=== PATIENT | male | born 1950 | race Caucasian/White ===

== ENCOUNTER 2023-02-14 08:35 | Outpatient (CLI) | payer MEDICARE, OTHER | END 2023-02-14 08:36 | disposition home or self-care (01) | LOC: NM 08:35 | PROVIDERS: ATTEND Psychiatry & Neurology Neurology | DX: R25.1 Tremor, unspecified (principal); R94.8 Abnormal results of function studies of other organs and systems | CPT/HCPCS: 78803; A9584 ×2 ==